=== PATIENT | female | born 1985 | race American Indian/Alaskan Native ===

== ENCOUNTER 2018-06-01 05:30 | Inpatient (IN) | payer SELFPAY ==
[2018-06-01] MEDS ORDERED: ASPIRIN PO ONE (05:45)
[2018-06-01 06:28] LABS: Basophils # (Auto) 0.1 K/mm3 (0.0-0.1); Basophils % (Auto) 0.9 % (0.0-1.8); Eosinophils # (Auto) 0.1 K/mm3 (0.0-0.4); Eosinophils % (Auto) 2.1 % (0.0-4.3); Hematocrit 26.2 % (30.3-42.9); Hemoglobin 8.5 gm/dl (10.1-14.3); Lymphocytes # (Auto) 1.6 K/mm3 (1.2-5.4); Lymphocytes % (Auto) 23.4 % (13.4-35.0); Mean Corpuscular HGB Conc 33 % (30-34); Mean Corpuscular Volume 90 fl (79-97); Monocytes # (Auto) 0.6 K/mm3 (0.0-0.8); Monocytes % (Auto) 8.9 % (0.0-7.3); Platelet Count 348 K/mm3 (140-440); Red Blood Count 2.91 M/mm3 (3.65-5.03); Red Cell Distribution Width 15.3 % (13.2-15.2)
[2018-06-01 06:44] LABS: BUN/Creatinine Ratio 20; Blood Urea Nitrogen 12 mg/dL (7-17); Calcium 8.3 mg/dL (8.4-10.2); Hemolysis Index 2
[2018-06-01 06:59] LABS: INR 0.97 (0.87-1.13); Partial Thromboplastin Time 28.1 Sec. (24.2-36.6)
[2018-06-01 07:08] LABS: Alanine Aminotransferase 13 units/L (7-56); Albumin 3.5 g/dL (3.9-5)
[2018-06-01 07:34] LABS: Bacteria,Urine 1+ /HPF (Negative); Bilirubin,Urine NEG (Negative); Blood,Urine LG (Negative); Color,Urine Yellow (Yellow); Mucus,Urine 2+ /HPF; Urobilinogen,Urine < 2.0 mg/dL (<2.0)
[2018-06-01 07:35] LABS: HCG Qualitative,Urine Negative (Negative)
[2018-06-01 07:37] LABS: Creatine Kinase MB < 1.0 ng/mL (0.0-4.0)
[2018-06-01 07:38] LABS: Bilirubin,Direct < 0.2 mg/dL (0-0.2)
[2018-06-01 07:39] LABS: Amphetamine Screen,Urine PRESUMPTIVE NEGATIVE; Benzodiazepines Screen,Urine PRESUMPTIVE NEGATIVE; Cannabinoid Screen,Urine PRESUMPTIVE NEGATIVE; Cocaine Screen,Urine PRESUMPTIVE NEGATIVE; Methadone Screen,Urine PRESUMPTIVE NEGATIVE; Opiate Screen,Urine PRESUMPTIVE NEGATIVE
--- NOTE | 2018-06-01 07:47 | XRay Report ---
AP CHEST: HISTORY: chest pain AP view of the chest demonstrates a normal mediastinal and cardiac contour with clear lungs and normal bony and soft tissue structures. IMPRESSION: Unremarkable AP chest.
--- NOTE | 2018-06-01 08:31 | Emergency Department Report ---
ED General Adult HPI - General Chief complaint: Dyspnea/Respdistress Stated complaint: TRACY Time Seen by Provider: 06/01/18 06:26 Source: patient Mode of arrival: Ambulatory Limitations: No Limitations - History of Present Illness Initial comments: This is a 32 year old morbidly obese female who states that she woke up in the middle of the night gasping for air. She is here with family member who states that she witnessed this but did not appreciate a period of apnea prior as she was not in the room. Apparently this patient has been suspected of sleep apnea in the past but has never had a sleep study. She also complains of persistent chest tightness. It is nonpleuritic in nature. It is substernal. It does not radiate. It has largely resolved. She has had an occasional nonproductive cough but does not complain of leg pain. Cough is nonproductive. Patient states that she has been to hospitals in [place] as well has out-of-town for evaluation of these type episodes. She has never had a sleep study. She has never had any cardiac workup. She has no history of recent travel. She does complain of bilateral leg swelling which is somewhat chronic. She has no history of venous thromboembolism. -: Last night Location: chest Severity scale (0 -10): 4 Quality: other Consistency: intermittent Improves with: none (tightness), immobilization Associated Symptoms: shortness of breath Treatments Prior to Arrival: none - Related Data Home Medications Medication Instructions Recorded Confirmed Last Taken No Known Home Medications [No 06/01/18 06/01/18 Unknown Reported Home Medications] Allergies Allergy/AdvReac Type Severity Reaction Status Date / Time No Known Allergies Allergy Verified 06/01/18 05:42 ED Review of Systems ROS: Stated complaint: TRACY Other details as noted in HPI Constitutional: denies: chills, fever Eyes: denies: eye pain, eye discharge, vision change ENT: denies: ear pain, throat pain Respiratory: see HPI, cough, shortness of breath. denies: wheezing Cardiovascular: chest pain. denies: palpitations Endocrine: no symptoms reported Gastrointestinal: denies: abdominal pain, nausea, diarrhea Genitourinary: denies: urgency, dysuria, discharge Musculoskeletal: denies: back pain, joint swelling, arthralgia Skin: denies: rash, lesions Neurological: denies: headache, weakness, paresthesias Psychiatric: denies: anxiety, depression Hematological/Lymphatic: denies: easy bleeding, easy bruising ED Past Medical Hx - Past Medical History Previous Medical History?: Yes Additional medical history: palpations. hypomagnesemia. poss Sleep apnea. heart murmur. Hypothyroid - Surgical History Past Surgical History?: No - Social History Smoking Status: Never Smoker Substance Use Type: None - Medications Home Medications: Home Medications Medication Instructions Recorded Confirmed Last Taken Type No Known Home Medications [No 06/01/18 06/01/18 Unknown History Reported Home Medications] ED Physical Exam - General Limitations: No Limitations General appearance: alert, in no apparent distress - Head Head exam: Present: atraumatic, normocephalic - Eye Eye exam: Present: normal appearance. Absent: scleral icterus - ENT ENT exam: Present: mucous membranes moist - Neck Neck exam: Present: normal inspection - Respiratory Respiratory exam: Present: normal lung sounds bilaterally. Absent: respiratory distress - Cardiovascular Cardiovascular Exam: Present: regular rate, normal rhythm. Absent: systolic murmur, diastolic murmur, rubs, gallop - GI/Abdominal GI/Abdominal exam: Present: soft, normal bowel sounds. Absent: distended, tenderness, guarding, rebound, rigid - Extremities Exam Extremities exam: Present: other (bilateral pretibial edema left slightly greater than right). Absent: calf tenderness - Back Exam Back exam: Present: normal inspection. Absent: tenderness, CVA tenderness (L), muscle spasm, paraspinal tenderness - Neurological Exam Neurological exam: Present: alert, oriented X3, CN II-XII intact. Absent: motor sensory deficit - Psychiatric Psychiatric exam: Present: normal affect, normal mood - Skin Skin exam: Present: warm, dry, intact, normal color. Absent: rash ED Course Vital Signs 06/01/18 06/01/18 06/01/18 05:31 05:53 07:17 Temperature 98.1 F 98.2 F 98 F Pulse Rate 117 H 99 H 94 H Respiratory 22 18 16 Rate Blood Pressure 143/85 Blood Pressure 139/71 130/73 [Left] O2 Sat by Pulse 96 99 100 Oximetry - Reevaluation(s) Reevaluation #1: I have ordered further workup of this patient is apparently life-altering episode last night. It does seem most consistent with sleep apnea. It does s eem to be fairly profound in nature however. She is not hypoxic now. I have ordered a blood gas to exclude chronic hypercapnic respiratory failure as she is morbidly obese. I do note a very slightly elevated d-dimer. I have ordered Dopplers of her legs. I will leave further workup as per the hospitalist discretion. Patient is admitted by Dr. Corea in stable condition. Patient has unexplained anemia and probably a UTI as well. 06/01/18 09:07 06/01/18 09:10 ED Medical Decision Making - Lab Data Result diagrams: 06/01/18 06:11 06/01/18 06:11 Laboratory Results - last 24 hr 06/01/18 06/01/18 06/01/18 06:11 06:11 06:33 WBC 7.0 RBC 2.91 L Hgb 8.5 L Hct 26.2 L MCV 90 MCH 29 MCHC 33 RDW 15.3 H Plt Count 348 Lymph % (Auto) 23.4 [place] % (Auto) 8.9 H Eos % (Auto) 2.1 Baso % (Auto) 0.9 Lymph # 1.6 [place] # 0.6 Eos # 0.1 Baso # 0.1 Seg Neutrophils % 64.7 Seg Neutrophils # 4.5 PT 13.5 INR 0.97 APTT 28.1 D-Dimer Sodium 139 Potassium 3.6 Chloride 102.8 Carbon Dioxide 26 Anion Gap 14 BUN 12 Creatinine 0.6 L Estimated GFR > 60 BUN/Creatinine Ratio 20 Glucose 98 Calcium 8.3 L Magnesium Total Bilirubin Direct Bilirubin Indirect Bilirubin AST ALT Alkaline Phosphatase Total Creatine Kinase CK-MB (CK-2) CK-MB (CK-2) Rel Index Troponin T < 0.010 NT-Pro-B Natriuret Pep Total Protein Albumin Albumin/Globulin Ratio HCG, Qual Urine Color Urine Turbidity Urine pH Ur Specific [place] Urine Protein Urine Glucose (UA) Urine Ketones Urine Blood Urine Nitrite Urine Bilirubin Urine Urobilinogen Ur Leukocyte Esterase Urine WBC (Auto) Urine RBC (Auto) U Epithel Cells (Auto) Urine Bacteria (Auto) Urine Mucus Urine HCG, Qual Urine Opiates Screen Urine Methadone Screen Ur Barbiturates Screen Ur Phencyclidine Scrn Ur Amphetamines Screen U Benzodiazepines Scrn Urine Cocaine Screen U Marijuana (THC) Screen Drugs of Abuse Note 06/01/18 06/01/18 06/01/18 06:33 06:33 06:33 WBC RBC Hgb Hct MCV MCH MCHC RDW Plt Count Lymph % (Auto) [place] % (Auto) Eos % (Auto) Baso % (Auto) Lymph # [place] # Eos # Baso # Seg Neutrophils % Seg Neutrophils # PT INR APTT D-Dimer 284.66 H Sodium Potassium Chloride Carbon Dioxide Anion Gap BUN Creatinine Estimated GFR BUN/Creatinine Ratio Glucose Calcium Magnesium 1.80 Total Bilirubin 0.20 Direct Bilirubin < 0.2 Indirect Bilirubin 0.0 AST 15 ALT 13 Alkaline Phosphatase 47 Total Creatine Kinase 88 CK-MB (CK-2) < 1.0 CK-MB (CK-2) Rel Index 1.1 Troponin T < 0.010 NT-Pro-B Natriuret Pep < 5 Total Protein 6.0 L Albumin 3.5 L Albumin/Globulin Ratio 1.4 HCG, Qual Negative Urine Color Urine Turbidity Urine pH Ur Specific [place] Urine Protein Urine Glucose (UA) Urine Ketones Urine Blood Urine Nitrite Urine Bilirubin Urine Urobilinogen Ur Leukocyte Esterase Urine WBC (Auto) Urine RBC (Auto) U Epithel Cells (Auto) Urine Bacteria (Auto) Urine Mucus Urine HCG, Qual Urine Opiates Screen Urine Methadone Screen Ur Barbiturates Screen Ur Phencyclidine Scrn Ur Amphetamines Screen U Benzodiazepines Scrn Urine Cocaine Screen U Marijuana (THC) Screen Drugs of Abuse Note 06/01/18 06/01/18 07:17 07:17 WBC RBC Hgb Hct MCV MCH MCHC RDW Plt Count Lymph % (Auto) [place] % (Auto) Eos % (Auto) Baso % (Auto) Lymph # [place] # Eos # Baso # Seg Neutrophils % Seg Neutrophils # PT INR APTT D-Dimer Sodium Potassium Chloride Carbon Dioxide Anion Gap BUN Creatinine Estimated GFR BUN/Creatinine Ratio Glucose Calcium Magnesium Total Bilirubin Direct Bilirubin Indirect Bilirubin AST ALT Alkaline Phosphatase Total Creatine Kinase CK-MB (CK-2) CK-MB (CK-2) Rel Index Troponin T NT-Pro-B Natriuret Pep Total Protein Albumin Albumin/Globulin Ratio HCG, Qual Urine Color Yellow Urine Turbidity Clear Urine pH 5.0 Ur Specific [place] 1.029 Urine Protein 30 mg/dl Urine Glucose (UA) Neg Urine Ketones Neg Urine Blood Lg Urine Nitrite Neg Urine Bilirubin Neg Urine Urobilinogen < 2.0 Ur Leukocyte Esterase Neg Urine WBC (Auto) 13.0 H Urine RBC (Auto) 159.0 U Epithel Cells (Auto) 1.0 Urine Bacteria (Auto) 1+ Urine Mucus 2+ Urine HCG, Qual Negative Urine Opiates Screen Presumptive negative Urine Methadone Screen Presumptive negative Ur Barbiturates Screen Presumptive negative Ur Phencyclidine Scrn Presumptive negative Ur Amphetamines Screen Presumptive negative U Benzodiazepines Scrn Presumptive negative Urine Cocaine Screen Presumptive negative U Marijuana (THC) Screen Presumptive negative Drugs of Abuse Note Disclamer Laboratory Results - last 24 hr 06/01/18 06/01/18 06/01/18 06:11 06:11 06:33 WBC 7.0 RBC 2.91 L Hgb 8.5 L Hct 26.2 L MCV 90 MCH 29 MCHC 33 RDW 15.3 H Plt Count 348 Lymph % (Auto) 23.4 [place] % (Auto) 8.9 H Eos % (Auto) 2.1 Baso % (Auto) 0.9 Lymph # 1.6 [place] # 0.6 Eos # 0.1 Baso # 0.1 Seg Neutrophils % 64.7 Seg Neutrophils # 4.5 PT 13.5 INR 0.97 APTT 28.1 D-Dimer Sodium 139 Potassium 3.6 Chloride 102.8 Carbon Dioxide 26 Anion Gap 14 BUN 12 Creatinine 0.6 L Estimated GFR > 60 BUN/Creatinine Ratio 20 Glucose 98 Calcium 8.3 L Magnesium Total Bilirubin Direct Bilirubin Indirect Bilirubin AST ALT Alkaline Phosphatase Total Creatine Kinase CK-MB (CK-2) CK-MB (CK-2) Rel Index Troponin T < 0.010 NT-Pro-B Natriuret Pep Total Protein Albumin Albumin/Globulin Ratio HCG, Qual Urine Color Urine Turbidity Urine pH Ur Specific [place] Urine Protein Urine Glucose (UA) Urine Ketones Urine Blood Urine Nitrite Urine Bilirubin Urine Urobilinogen Ur Leukocyte Esterase Urine WBC (Auto) Urine RBC (Auto) U Epithel Cells (Auto) Urine Bacteria (Auto) Urine Mucus Urine HCG, Qual Urine Opiates Screen Urine Methadone Screen Ur Barbiturates Screen Ur Phencyclidine Scrn Ur Amphetamines Screen U Benzodiazepines Scrn Urine Cocaine Screen U Marijuana (THC) Screen Drugs of Abuse Note 06/01/18 06/01/18 06/01/18 06:33 06:33 06:33 WBC RBC Hgb Hct MCV MCH MCHC RDW Plt Count Lymph % (Auto) [place] % (Auto) Eos % (Auto) Baso % (Auto) Lymph # [place] # Eos # Baso # Seg Neutrophils % Seg Neutrophils # PT INR APTT D-Dimer 284.66 H Sodium Potassium Chloride Carbon Dioxide Anion Gap BUN Creatinine Estimated GFR BUN/Creatinine Ratio Glucose Calcium Magnesium 1.80 Total Bilirubin 0.20 Direct Bilirubin < 0.2 Indirect Bilirubin 0.0 AST 15 ALT 13 Alkaline Phosphatase 47 Total Creatine Kinase 88 CK-MB (CK-2) < 1.0 CK-MB (CK-2) Rel Index 1.1 Troponin T < 0.010 NT-Pro-B Natriuret Pep < 5 Total Protein 6.0 L Albumin 3.5 L Albumin/Globulin Ratio 1.4 HCG, Qual Negative Urine Color Urine Turbidity Urine pH Ur Specific [place] Urine Protein Urine Glucose (UA) Urine Ketones Urine Blood Urine Nitrite Urine Bilirubin Urine Urobilinogen Ur Leukocyte Esterase Urine WBC (Auto) Urine RBC (Auto) U Epithel Cells (Auto) Urine Bacteria (Auto) Urine Mucus Urine HCG, Qual Urine Opiates Screen Urine Methadone Screen Ur Barbiturates Screen Ur Phencyclidine Scrn Ur Amphetamines Screen U Benzodiazepines Scrn Urine Cocaine Screen U Marijuana (THC) Screen Drugs of Abuse Note 06/01/18 06/01/18 07:17 07:17 WBC RBC Hgb Hct MCV MCH MCHC RDW Plt Count Lymph % (Auto) [place] % (Auto) Eos % (Auto) Baso % (Auto) Lymph # [place] # Eos # Baso # Seg Neutrophils % Seg Neutrophils # PT INR APTT D-Dimer Sodium Potassium Chloride Carbon Dioxide Anion Gap BUN Creatinine Estimated GFR BUN/Creatinine Ratio Glucose Calcium Magnesium Total Bilirubin Direct Bilirubin Indirect Bilirubin AST ALT Alkaline Phosphatase Total Creatine Kinase CK-MB (CK-2) CK-MB (CK-2) Rel Index Troponin T NT-Pro-B Natriuret Pep Total Protein Albumin Albumin/Globulin Ratio HCG, Qual Urine Color Yellow Urine Turbidity Clear Urine pH 5.0 Ur Specific [place] 1.029 Urine Protein 30 mg/dl Urine Glucose (UA) Neg Urine Ketones Neg Urine Blood Lg Urine Nitrite Neg Urine Bilirubin Neg Urine Urobilinogen < 2.0 Ur Leukocyte Esterase Neg Urine WBC (Auto) 13.0 H Urine RBC (Auto) 159.0 U Epithel Cells (Auto) 1.0 Urine Bacteria (Auto) 1+ Urine Mucus 2+ Urine HCG, Qual Negative Urine Opiates Screen Presumptive negative Urine Methadone Screen Presumptive negative Ur Barbiturates Screen Presumptive negative Ur Phencyclidine Scrn Presumptive negative Ur Amphetamines Screen Presumptive negative U Benzodiazepines Scrn Presumptive negative Urine Cocaine Screen Presumptive negative U Marijuana (THC) Screen Presumptive negative Drugs of Abuse Note Disclamer Critical care attestation.: If time is entered above; I have spent that time in minutes in the direct care of this critically ill patient, excluding procedure time. ED Disposition Clinical Impression: Apneic episode Chest pain Qualifiers: Chest pain type: unspecified Qualified Code(s): R07.9 - Chest pain, unspecified Anemia Qualifiers: Anemia type: unspecified type Qualified Code(s): D64.9 - Anemia, unspecified UTI (urinary tract infection) Qualifiers: Urinary tract infection type: site unspecified Hematuria presence: with hematuria Qualified Code(s): N39.0 - Urinary tract infection, site not specified; R31.9 - Hematuria, unspecified Disposition: 09 OP ADMIT IP TO THIS HOSP Is pt being admited?: Yes Does the pt Need Aspirin: Yes Condition: Stable Instructions: Chest Pain (ED) Referrals: PRIMARY CARE, [Primary Care Provider] - 3-5 Days Time of Disposition: 09:12
--- NOTE | 2018-06-01 11:15 | Vascular Lab Report ---
PROCEDURE: VL VENOUS DUPLEX LE BILAT TECHNIQUE: Duplex Doppler imaging of the veins of the bilateral lower extremities was performed. HISTORY: leg edema COMPARISONS: None FINDINGS: The veins of the right lower extremity are patent, compressible, demonstrate normal waveforms and aug mentation. The veins of the left lower extremity are patent, compressible, and demonstrate normal waveforms and augmentation. IMPRESSION: No evidence of deep venous thrombosis of the bilateral lower extremities. This document is electronically signed by Pearl Murillo MD., June 01 2018 11:12:53 AM ET
--- NOTE | 2018-06-01 13:57 | History and Physical Report ---
History of Present Illness Date of examination: 06/01/18 Chief complaint: sob History of present illness: This is a 32 year old morbidly obese female who states that she woke up in the middle of the night gasping for air. She is here with family member who states that she witnessed this but did not appreciate a period of apnea prior as she was not in the room. Apparently this patient has been suspected of sleep apnea in the past but has never had a sleep study. She also complains of persistent nonradiating substernal chest tightness. She reports that her chest discomfort has resolved. She denies any previous cardiac workup, recent travel. She does complain of bilateral leg swelling which is somewhat chronic. She has no history of venous thromboembolism. Past History Past Medical History: other (obesity) Past Surgical History: No surgical history Social history: no significant social history Family history: no significant family history Medications and Allergies Allergies Allergy/AdvReac Type Severity Reaction Status Date / Time No Known Allergies Allergy Verified 06/01/18 05:42 Home Medications Medication Instructions Recorded Confirmed Last Taken Type No Known Home Medications [No 06/01/18 06/01/18 Unknown History Reported Home Medications] Review of Systems All systems: negative Exam - Constitutional Vitals: Temp Pulse Resp BP Pulse Ox 98.4 F 90 16 158/92 100 06/01/18 11:00 06/01/18 11:00 06/01/18 11:00 06/01/18 11:00 06/01/18 11:00 General appearance: Present: no acute distress, well-nourished - EENT Eyes: Present: PERRL ENT: hearing intact, clear oral mucosa - Neck Neck: Present: supple, normal ROM - Respiratory Respiratory effort: normal Respiratory: bilateral: diminished - Cardiovascular Heart Sounds: Present: S1 & S2. Absent: rub, click - Extremities Extremities: pulses symmetrical, No edema Peripheral Pulses: within normal limits - Abdominal General gastrointestinal: Present: soft, non-tender, non-distended, normal bowel sounds Female genitourinary: Present: normal - Integumentary Integumentary: Present: clear, warm, dry - Musculoskeletal Musculoskeletal: gait normal, strength equal bilaterally - Psychiatric Psychiatric: appropriate mood/affect, intact judgment & insight - Neurologic Neurologic: CNII-XII intact, moves all extremities Results - Labs CBC & Chem 7: 06/01/18 06:11 06/01/18 06:11 Labs: Laboratory Last Values WBC 7.0 K/mm3 (4.5-11.0) 06/01/18 06:11 RBC 2.91 M/mm3 (3.65-5.03) L 06/01/18 06:11 Hgb 8.5 gm/dl (10.1-14.3) L 06/01/18 06:11 Hct 26.2 % (30.3-42.9) L 06/01/18 06:11 MCV 90 fl (79-97) 06/01/18 06:11 MCH 29 pg (28-32) 06/01/18 06:11 MCHC 33 % (30-34) 06/01/18 06:11 RDW 15.3 % (13.2-15.2) H 06/01/18 06:11 Plt Count 348 K/mm3 (140-440) 06/01/18 06:11 Lymph % (Auto) 23.4 % (13.4-35.0) 06/01/18 06:11 [place] % (Auto) 8.9 % (0.0-7.3) H 06/01/18 06:11 Eos % (Auto) 2.1 % (0.0-4.3) 06/01/18 06:11 Baso % (Auto) 0.9 % (0.0-1.8) 06/01/18 06:11 Lymph # 1.6 K/mm3 (1.2-5.4) 06/01/18 06:11 [place] # 0.6 K/mm3 (0.0-0.8) 06/01/18 06:11 Eos # 0.1 K/mm3 (0.0-0.4) 06/01/18 06:11 Baso # 0.1 K/mm3 (0.0-0.1) 06/01/18 06:11 Seg Neutrophils % 64.7 % (40.0-70.0) 06/01/18 06:11 Seg Neutrophils # 4.5 K/mm3 (1.8-7.7) 06/01/18 06:11 PT 13.5 Sec. (12.2-14.9) 06/01/18 06:33 INR 0.97 (0.87-1.13) 06/01/18 06:33 APTT 28.1 Sec. (24.2-36.6) 06/01/18 06:33 D-Dimer 284.66 ng/mlDDU (0-234) H 06/01/18 06:33 Sodium 139 mmol/L (137-145) 06/01/18 06:11 Potassium 3.6 mmol/L (3.6-5.0) 06/01/18 06:11 Chloride 102.8 mmol/L (98-107) 06/01/18 06:11 Carbon Dioxide 26 mmol/L (22-30) 06/01/18 06:11 Anion Gap 14 mmol/L 06/01/18 06:11 BUN 12 mg/dL (7-17) 06/01/18 06:11 Creatinine 0.6 mg/dL (0.7-1.2) L 06/01/18 06:11 Estimated GFR > 60 ml/min 06/01/18 06:11 BUN/Creatinine Ratio 20 % 06/01/18 06:11 Glucose 98 mg/dL (65-100) 06/01/18 06:11 Calcium 8.3 mg/dL (8.4-10.2) L 06/01/18 06:11 Magnesium 1.80 mg/dL (1.7-2.3) 06/01/18 06:33 Total Bilirubin 0.20 mg/dL (0.1-1.2) 06/01/18 06:33 Direct Bilirubin < 0.2 mg/dL (0-0.2) 06/01/18 06:33 Indirect Bilirubin 0.0 mg/dL 06/01/18 06:33 AST 15 units/L (5-40) 06/01/18 06:33 ALT 13 units/L (7-56) 06/01/18 06:33 Alkaline Phosphatase 47 units/L (35-129) 06/01/18 06:33 Total Creatine Kinase 88 units/L (30-135) 06/01/18 06:33 CK-MB (CK-2) < 1.0 ng/mL (0.0-4.0) 06/01/18 06:33 CK-MB (CK-2) Rel Index 1.1 (0-4) 06/01/18 06:33 Troponin T < 0.010 ng/mL (0.00-0.029) 06/01/18 10:12 NT-Pro-B Natriuret Pep < 5 pg/mL (0-450) 06/01/18 06:33 Total Protein 6.0 g/dL (6.3-8.2) L 06/01/18 06:33 Albumin 3.5 g/dL (3.9-5) L 06/01/18 06:33 Albumin/Globulin Ratio 1.4 % 06/01/18 06:33 HCG, Qual Negative (Negative) 06/01/18 06:33 Urine Color Yellow (Yellow) 06/01/18 07:17 Urine Turbidity Clear (Clear) 06/01/18 07:17 Urine pH 5.0 (5.0-7.0) 06/01/18 07:17 Ur Specific [place] 1.029 (1.003-1.030) 06/01/18 07:17 Urine Protein 30 mg/dl mg/dL (Negative) 06/01/18 07:17 Urine Glucose (UA) Neg mg/dL (Negative) 06/01/18 07:17 Urine Ketones Neg mg/dL (Negative) 06/01/18 07:17 Urine Blood Lg (Negative) 06/01/18 07:17 Urine Nitrite Neg (Negative) 06/01/18 07:17 Urine Bilirubin Neg (Negative) 06/01/18 07:17 Urine Urobilinogen < 2.0 mg/dL (<2.0) 06/01/18 07:17 Ur Leukocyte Esterase Neg (Negative) 06/01/18 07:17 Urine WBC (Auto) 13.0 /HPF (0.0-6.0) H 06/01/18 07:17 Urine RBC (Auto) 159.0 /HPF (0.0-6.0) 06/01/18 07:17 U Epithel Cells (Auto) 1.0 /HPF (0-13.0) 06/01/18 07:17 Urine Bacteria (Auto) 1+ /HPF (Negative) 06/01/18 07:17 Urine Mucus 2+ /HPF 06/01/18 07:17 Urine HCG, Qual Negative (Negative) 06/01/18 07:17 Urine Opiates Screen Presumptive negative 06/01/18 07:17 Urine Methadone Screen Presumptive negative 06/01/18 07:17 Ur Barbiturates Screen Presumptive negative 06/01/18 07:17 Ur Phencyclidine Scrn Presumptive negative 06/01/18 07:17 Ur Amphetamines Screen Presumptive negative 06/01/18 07:17 U Benzodiazepines Scrn Presumptive negative 06/01/18 07:17 Urine Cocaine Screen Presumptive negative 06/01/18 07:17 U Marijuana (THC) Screen Presumptive negative 06/01/18 07:17 Drugs of Abuse Note Disclamer 06/01/18 07:17 Assessment and Plan Assessment and plan: Dyspnea. Etiology is unknown but likely related to JESSICA/OHS. Patient will need outpatient sleep study. D-dimer is elevated. Continue O2 for supportive care. BiPAP as clinically indicated. Check ABG. Chest x-ray unremarkable. Consider echocardiogram. Elevated d-dimer. Check CT of the chest. UTI. Start po antibiotics. Check UA and urine culture. OHS/JESSICA. As above.
[2018-06-01] MEDS ORDERED: ZOFRAN IV PRN (14:02)
[2018-06-01] MEDS ORDERED: SODIUM CHLORIDE FLUSH SYRINGE 10 ML IV PRN (14:02)
[2018-06-01] MEDS ORDERED: TYLENOL PO PRN (14:02)
--- NOTE | 2018-06-01 15:27 | Nuclear Medicine Report ---
VENTILATION/PERFUSION LUNG SCAN: 06/01/18 14:28:00 CLINICAL: Dyspnea. TECHNIQUE: 15.0 mCi of xenon-133 was administered by aerosol and 5.0 mCi of technetium 99m MAA was administered intravenously. Comparison is made to a same day chest x-ray. FINDINGS: Inhalation of Xenon gas demonstrates a normal distribution of the activity throughout both lungs. The wash out phases show no significant retention of activity. After injection of Technetium 99m macroaggregated albumin gamma camera imaging of the lungs in multiple projections demonstrates normal pulmonary contours with a relatively homogeneous distribution of activity. No suspicious focal areas of perfusion deficiency are identified. IMPRESSION: Low probability for pulmonary embolus.
[2018-06-01] MEDS ORDERED: LOVENOX SUB-Q SCH (22:00)
[2018-06-01] MEDS: SODIUM CHLORIDE FLUSH SYRINGE 10 ML IV SCH (22:22)
[2018-06-02 07:53] LABS: Basophils % (Auto) 0.9 % (0.0-1.8); Eosinophils # (Auto) 0.1 K/mm3 (0.0-0.4); Eosinophils % (Auto) 2.7 % (0.0-4.3); Hematocrit 26.8 % (30.3-42.9); Hemoglobin 8.5 gm/dl (10.1-14.3); Lymphocytes # (Auto) 1.7 K/mm3 (1.2-5.4); Mean Corpuscular HGB Conc 32 % (30-34); Mean Corpuscular Volume 91 fl (79-97); Monocytes # (Auto) 0.6 K/mm3 (0.0-0.8); Monocytes % (Auto) 11.7 % (0.0-7.3); Platelet Count 351 K/mm3 (140-440); Red Blood Count 2.95 M/mm3 (3.65-5.03); Red Cell Distribution Width 15.7 % (13.2-15.2)
[2018-06-02 08:17] LABS: BUN/Creatinine Ratio 18; Blood Urea Nitrogen 11 mg/dL (7-17); Calcium 8.8 mg/dL (8.4-10.2); Hemolysis Index 5
[2018-06-02] MEDS: SODIUM CHLORIDE FLUSH SYRINGE 10 ML IV SCH (10:44)
[2018-06-02 11:54] VITALS: BP 123/66
--- NOTE | 2018-06-02 14:50 | Discharge Summary ---
Providers - Providers Date of Admission: 06/01/18 14:02 Date of discharge: 06/02/18 Attending physician: REMI JAMES Primary care physician: SIMRAN BUCK MD Hospitalization Condition: Stable Hospital course: Patient is a 32 yo woman without chronic medical issues except BMI 62.3 who presented to [facility] ED with acute SOB during sleep. Dyspnea. Etiology is unknown but likely related to JESSICA/OHS. Patient will need outpatient sleep study. Elevated d-dimer. v/q scan low probability with low pre-test probability==> un likely PE UTI. Start po antibiotics. Check UA and urine culture. OHS/JESSICA suspected. As above. Disposition: DC-01 TO HOME OR SELFCARE Time spent for discharge: 36 minutes Core Measure Documentation - Palliative Care Palliative Care/ Comfort Measures: Not Applicable - Core Measures Any of the following diagnoses?: none - VTE Discharge Requirements Deep Vein Thrombosis/Pulmonary Embolism Present on Admission: No Has pt received <5 days of overlap therapy or INR<2.0: No Anticoagulant overlap therapy prescribed at discharge: No Contraindication No Overlap Therapy order at DC: Not Indicated Exam - Physical Exam Narrative exam: GEN: WDWN, NAD, Awake, Alert, Orientated, bmi 62.3, 180 kg HEENT: NCAT, EOMI, PERRL, OP Clear NECK: supple, no adenopathy, no thyromegaly, no JVD CVS/HEART: RRR, normal S1S2, pulses present bilaterally CHEST/LUNGS: CTA B, Symmetrical chest expansion, good air entry bilaterally GI/Abdomen: soft, NTND, good bowel sounds, no guarding or rebound /Bladder: no suprapubic tenderness, no CVA or paraspinal tenderness EXT/Skin: no c/c/e, no obvious rash MSK: FROM x 4 Neuro: CN 2-12 grossly intact, no new focal deficits Psych: calm - Constitutional Vitals: Temp Pulse Resp BP Pulse Ox 98.6 F 80 22 123/66 98 06/02/18 11:52 06/02/18 11:52 06/02/18 11:52 06/02/18 11:52 06/02/18 11:52 Plan Activity: up only with assistance, other (no strenous activity unless cleared by Lung doctor) Diet: renal Additional Instructions: You need a sleep study which is done at a sleep center. Sleep with head elevated. Follow up with: PRIMARY CARE, [Primary Care Provider] - 3-5 Days JAMIN ERVIN MD [Staff Physician] - 7 Days
== END 2018-06-02 18:10 | disposition home or self-care (01) | DRG 206 ==
LOC: ED 05:30 → 3A 14:02
PROVIDERS: ADMIT Hospitalist; ATTEND Internal Medicine
PROC: 4A033R1 Measurement of Arterial Saturation, Peripheral, Percutaneous Approach (ICD-10-PCS; principal; 2018-06-01)
DX: E66.2 Morbid (severe) obesity with alveolar hypoventilation (principal); N39.0 Urinary tract infection, site not specified; Z68.44 Body mass index [BMI] 60.0-69.9, adult; E03.9 Hypothyroidism, unspecified; D64.9 Anemia, unspecified
CPT/HCPCS: 36415; 71045; 78582; 80048; 80076; 80307; 81001; 81025; 82550; 82553; 82803; 83735; 83880; 84484; 84703; 85025; 85379; 85610; 85730; 87086; 93005; 93010; 93970; G0378; A9540; A9558; J1650

== ENCOUNTER 2018-06-08 00:19 | Emergency (ER) | payer SELFPAY ==
--- NOTE | 2018-06-08 01:11 | Emergency Department Report ---
ED General Adult HPI - General Chief complaint: Extremity Problem,Nontraumatic Stated complaint: LEG AND THIGH SWELLING HEART FLUTTERING Time Seen by Provider: 06/08/18 00:59 Source: patient Mode of arrival: Ambulatory Limitations: No Limitations - History of Present Illness Initial comments: Patient is a 32-year-old -[place] female obese presents for bipolar extremity edema for past 2 weeks. She she states she is in heart failure, she was admitted on through for further evaluation including PE studies DVT studies, heart failure studies, I constipation is ambulatory. There is no respiratory distress at this time, there is no fever no chills there's been no nausea vomiting or diaphoresis back. Onset/Timin -: week(s) Location: chest, lower extremity Severity scale (0 -10): 4 Consistency: constant Improves with: none Worsens with: other (activity ) Associated Symptoms: cough (dry hacky cough ), other (bilat LE swelling ) - Related Data Previous Rx's Medication Instructions Recorded Last Taken Type Ibuprofen 800 mg PO TID PRN #30 tablet 06/08/18 Unknown Rx Sulfamethoxazole/Trimethoprim 1 each PO BID 10 Days #20 tablet 06/08/18 Unknown Rx [Bactrim DS TAB] Allergies Allergy/AdvReac Type Severity Reaction Status Date / Time No Known Allergies Allergy Verified 06/01/18 05:42 ED Review of Systems ROS: Stated complaint: LEG AND THIGH SWELLING HEART FLUTTERING Other details as noted in HPI Constitutional: denies: chills, fever Eyes: denies: eye pain, eye discharge, vision change ENT: denies: ear pain, throat pain Respiratory: denies: cough, shortness of breath, wheezing Cardiovascular: denies: chest pain, palpitations Endocrine: no symptoms reported Gastrointestinal: denies: abdominal pain, nausea, diarrhea Genitourinary: denies: urgency, dysuria, discharge Musculoskeletal: other (bilat le Edema ). denies: back pain, joint swelling, arthralgia Skin: denies: rash, lesions Neurological: denies: headache, weakness, paresthesias Psychiatric: denies: anxiety, depression Hematological/Lymphatic: denies: easy bleeding, easy bruising ED Past Medical Hx - Past Medical History Previous Medical History?: Yes Hx Congestive Heart Failure: No Hx Diabetes: No Additional medical history: palpations. hypomagnesemia. poss Sleep apnea. heart murmur. Hypothyroid - Surgical History Past Surgical History?: No - Social History Smoking Status: Never Smoker Substance Use Type: None - Medications Home Medications: Home Medications Medication Instructions Recorded Confirmed Last Taken Type Ibuprofen 800 mg PO TID PRN #30 tablet 06/08/18 Unknown Rx Sulfamethoxazole/Trimethoprim 1 each PO BID 10 Days #20 tablet 06/08/18 Unknown Rx [Bactrim DS TAB] ED Physical Exam - General Limitations: No Limitations General appearance: alert, in no apparent distress - Head Head exam: Present: atraumatic, normocephalic - Eye Eye exam: Present: normal appearance, PERRL, EOMI Pupils: Present: normal accommodation - ENT ENT exam: Present: normal exam, normal orophraynx, TM's normal bilaterally, normal external ear exam - Neck Neck exam: Present: normal inspection, full ROM - Respiratory Respiratory exam: Present: normal lung sounds bilaterally. Absent: respiratory distress, wheezes, chest wall tenderness - Cardiovascular Cardiovascular Exam: Present: regular rate, normal rhythm. Absent: systolic murmur, diastolic murmur, rubs, gallop - GI/Abdominal GI/Abdominal exam: Present: soft, normal bowel sounds - Rectal Rectal exam: Present: deferred - Extremities Exam Extremities exam: Present: normal inspection, full ROM, normal capillary refill. Absent: tenderness, joint swelling, calf tenderness - Expanded Lower Extremity Exam Left Lower Leg exam: Present: full ROM. Absent: tenderness, swelling, abrasion, laceration, ecchymosis, deformity, crepidus, dislocation, erythema, palpable cord, Betina's sign Ankle exam: Present: normal inspection, full ROM Foot/Toe exam: Present: normal inspection, full ROM Neuro vascular tendon exam: Present: no vascular compromise. Absent: motor deficit, sensory deficit, tendon deficit Gait: Positive: observed and normal Right Lower Leg exam: Present: full ROM. Absent: tenderness, swelling, abrasion, laceration, ecchymosis, deformity, crepidus, dislocation, erythema, palpable cord, Betina's sign Ankle exam: Present: normal inspection, full ROM. Absent: tenderness, swelling Foot/Toe exam: Present: normal inspection, full ROM. Absent: tenderness, swelling Neuro vascular tendon exam: Absent: motor deficit, sensory deficit, tendon deficit Gait: Positive: observed and normal - Back Exam Back exam: Present: normal inspection, full ROM. Absent: tenderness, CVA tenderness (R), CVA tenderness (L), muscle spasm, rash noted - Neurological Exam Neurological exam: Present: alert, oriented X3, CN II-XII intact, normal gait, reflexes normal. Absent: motor sensory deficit - Psychiatric Psychiatric exam: Present: normal affect, normal mood - Skin Skin exam: Present: warm, dry, intact, normal color. Absent: rash ED Course Vital Signs 06/08/18 06/08/18 00:24 00:26 Temperature 98.7 F 98.7 F Pulse Rate 114 H 113 H Respiratory 18 18 Rate Blood Pressure 142/95 142/95 O2 Sat by Pulse 100 100 Oximetry ED Medical Decision Making - Lab Data Result diagrams: 06/08/18 00:38 06/08/18 00:38 Labs 06/08/18 06/08/18 06/08/18 00:38 00:38 00:51 WBC 9.4 RBC 3.02 L Hgb 8.8 L Hct 26.8 L MCV 89 MCH 29 MCHC 33 RDW 15.6 H Plt Count 369 Lymph % (Auto) 21.2 [place] % (Auto) 7.7 H Eos % (Auto) 1.7 Baso % (Auto) 0.6 Lymph # 2.0 [place] # 0.7 Eos # 0.2 Baso # 0.1 Seg Neutrophils % 68.8 Seg Neutrophils # 6.4 PT INR APTT Sodium 141 Potassium 3.7 Chloride 103.7 Carbon Dioxide 26 Anion Gap 15 BUN 13 Creatinine 0.6 L Estimated GFR > 60 BUN/Creatinine Ratio 22 Glucose 97 Calcium 8.9 Total Bilirubin 0.20 AST 14 ALT 12 Alkaline Phosphatase 57 Troponin T NT-Pro-B Natriuret Pep Total Protein 6.7 Albumin 3.8 L Albumin/Globulin Ratio 1.3 Urine Color Yellow Urine Turbidity Clear Urine pH 5.0 Ur Specific [place] 1.035 H Urine Protein 30 mg/dl Urine Glucose (UA) Neg Urine Ketones Neg Urine Blood Lg Urine Nitrite Neg Urine Bilirubin Neg Urine Urobilinogen < 2.0 Ur Leukocyte Esterase Tr Urine WBC (Auto) 14.0 H Urine RBC (Auto) > 182.0 U Epithel Cells (Auto) 2.0 Urine Bacteria (Auto) 1+ Urine Mucus 2+ Urine HCG, Qual Negative 06/08/18 06/08/18 01:09 01:09 WBC RBC Hgb Hct MCV MCH MCHC RDW Plt Count Lymph % (Auto) [place] % (Auto) Eos % (Auto) Baso % (Auto) Lymph # [place] # Eos # Baso # Seg Neutrophils % Seg Neutrophils # PT 13.0 INR 0.93 APTT 26.4 Sodium Potassium Chloride Carbon Dioxide Anion Gap BUN Creatinine Estimated GFR BUN/Creatinine Ratio Glucose Calcium Total Bilirubin AST ALT Alkaline Phosphatase Troponin T < 0.010 NT-Pro-B Natriuret Pep < 5 Total Protein Albumin Albumin/Globulin Ratio Urine Color Urine Turbidity Urine pH Ur Specific [place] Urine Protein Urine Glucose (UA) Urine Ketones Urine Blood Urine Nitrite Urine Bilirubin Urine Urobilinogen Ur Leukocyte Esterase Urine WBC (Auto) Urine RBC (Auto) U Epithel Cells (Auto) Urine Bacteria (Auto) Urine Mucus Urine HCG, Qual - EKG Data EKG shows normal: sinus rhythm, axis, intervals, QRS complexes, ST-T waves Rate: normal - EKG Data When compared to previous EKG there are: no significant change Interpretation: normal EKG (ekg interp by ed attending NSR no ST elevation no ectopy ) - Radiology Data Radiology results: report reviewed, image reviewed Loc: ED Attending Dr: Ordering Physician: SHORTY VELIZ NP Date of Service: 06/08/18 Procedure(s): XR chest routine 2V Accession Number(s): [id number] cc: SHORTY VELIZ NP Fluoro Time In Minutes: PROCEDURE: XR CHEST ROUTINE 2V TECHNIQUE: PA and lateral chest radiographs were obtained. HISTORY: cough COMPARISONS: None. FINDINGS: Heart: Normal. Mediastinum/Vessels: Normal. Lungs/Pleural space: Normal. Bony thorax: No acute osseous abnormality. IMPRESSION: No focal consolidation or effusion. This document is electronically signed by Desi Piña MD., June 08 2018 02:12:14 AM ET Transcribed By: QF Dictated By: DESI PIÑA Electronically Authenticated By: DESI PIÑA Signed Date/Time: 06/08/18213 DD/ 9 TD/TT: 06/08/18199 - Medical Decision Making CXR: no infiltrate no opacities, EKG: NSR no ST elevation, BNP: trop, cmp, cbc, normal , UA: pos leuk, wbc, rbc plan: tx for UTI pt with same 2 weeks ago . will dc to home, with rx for bactrim DS , pt will follow up with pcp in 2-3 days return to emergency if symptoms worsen. Critical care attestation.: If time is entered above; I have spent that time in minutes in the direct care of this critically ill patient, excluding procedure time. ED Disposition Clinical Impression: UTI (urinary tract infection) Qualifiers: Urinary tract infection type: acute cystitis Hematuria presence: without hematuria Qualified Code(s): N30.00 - Acute cystitis without hematuria Disposition: DC-01 TO HOME OR SELFCARE Is pt being admited?: No Does the pt Need Aspirin: No Condition: Stable Instructions: Urinary Tract Infection in Men (ED) Prescriptions: Sulfamethoxazole/Trimethoprim [Bactrim DS TAB] 1 each PO BID 10 Days #20 tablet Ibuprofen 800 mg PO TID PRN #30 tablet PRN Reason: Pain , Severe (7-10) Referrals: AUDRA BARBOUR MD [Primary Care Provider] - 3-5 Days Forms: Work/School Release Form(ED) Time of Disposition: 04:31
[2018-06-08 01:25] LABS: Basophils # (Auto) 0.1 K/mm3 (0.0-0.1); Basophils % (Auto) 0.6 % (0.0-1.8); Eosinophils # (Auto) 0.2 K/mm3 (0.0-0.4); Eosinophils % (Auto) 1.7 % (0.0-4.3); Hematocrit 26.8 % (30.3-42.9); Hemoglobin 8.8 gm/dl (10.1-14.3); Lymphocytes % (Auto) 21.2 % (13.4-35.0); Mean Corpuscular HGB Conc 33 % (30-34); Mean Corpuscular Volume 89 fl (79-97); Monocytes # (Auto) 0.7 K/mm3 (0.0-0.8); Monocytes % (Auto) 7.7 % (0.0-7.3); Platelet Count 369 K/mm3 (140-440); Red Blood Count 3.02 M/mm3 (3.65-5.03); Red Cell Distribution Width 15.6 % (13.2-15.2)
[2018-06-08 01:36] LABS: INR 0.93 (0.87-1.13)
[2018-06-08 01:37] LABS: Partial Thromboplastin Time 26.4 Sec. (24.2-36.6)
[2018-06-08 01:41] LABS: Bacteria,Urine 1+ /HPF (Negative); Bilirubin,Urine NEG (Negative); Blood,Urine LG (Negative); Color,Urine Yellow (Yellow); Mucus,Urine 2+ /HPF; Urobilinogen,Urine < 2.0 mg/dL (<2.0)
[2018-06-08 01:43] LABS: HCG Qualitative,Urine Negative (Negative)
[2018-06-08 01:44] LABS: RBC,Urine > 182.0 /HPF (0.0-6.0)
[2018-06-08 01:46] LABS: Alanine Aminotransferase 12 units/L (7-56); Albumin 3.8 g/dL (3.9-5); BUN/Creatinine Ratio 22; Blood Urea Nitrogen 13 mg/dL (7-17); Calcium 8.9 mg/dL (8.4-10.2); Hemolysis Index 5
--- NOTE | 2018-06-08 02:14 | XRay Report ---
PROCEDURE: XR CHEST ROUTINE 2V TECHNIQUE: PA and lateral chest radiographs were obtained. HISTORY: cough COMPARISONS: None. FINDINGS: Heart: Normal. Mediastinum/Vessels: Normal. Lungs/Pleural space: Normal. Bony thorax: No acute osseous abnormality. IMPRESSION: No focal consolidation or effusion. This document is electronically signed by Kylie Piña MD., June 08 2018 02:12:14 AM ET
[2018-06-08] MEDS ORDERED: ROCEPHIN IM ONE (04:11)
[2018-06-08] MEDS ORDERED: XYLOCAINE 1% MPF 5 mL INFILTRATI ONE (04:11)
[2018-06-08 05:42] VITALS: BP 134/69
== END 2018-06-08 05:05 | disposition home or self-care (01) ==
LOC: ED 00:19
DX: R60.0 Localized edema (principal); N39.0 Urinary tract infection, site not specified; E03.9 Hypothyroidism, unspecified
CPT/HCPCS: 36415; 71046; 80053; 81001; 81025; 83880; 84484; 85025; 85610; 85730; 93005; 93010; 96372; 99284; J0696

== ENCOUNTER 2018-06-09 01:02 | Emergency (ER) | payer SELFPAY ==
[2018-06-09 04:49] LABS: Basophils # (Auto) 0.1 K/mm3 (0.0-0.1); Eosinophils # (Auto) 0.2 K/mm3 (0.0-0.4); Eosinophils % (Auto) 2.2 % (0.0-4.3); Hematocrit 26.2 % (30.3-42.9); Hemoglobin 8.6 gm/dl (10.1-14.3); Lymphocytes # (Auto) 2.1 K/mm3 (1.2-5.4); Lymphocytes % (Auto) 24.8 % (13.4-35.0); Mean Corpuscular HGB Conc 33 % (30-34); Mean Corpuscular Volume 88 fl (79-97); Monocytes # (Auto) 0.6 K/mm3 (0.0-0.8); Monocytes % (Auto) 7.8 % (0.0-7.3); Platelet Count 345 K/mm3 (140-440); Red Blood Count 2.97 M/mm3 (3.65-5.03); Red Cell Distribution Width 16.3 % (13.2-15.2)
[2018-06-09 05:12] LABS: BUN/Creatinine Ratio 22; Blood Urea Nitrogen 13 mg/dL (7-17); Hemolysis Index 3
--- NOTE | 2018-06-09 06:15 | Emergency Department Report ---
ED General Adult HPI - General Chief complaint: Arrhythmia/Palpitations Stated complaint: SWELLING IN BOTH LEGS Time Seen by Provider: 06/09/18 06:12 Source: patient Mode of arrival: Ambulatory Limitations: No Limitations - History of Present Illness Initial comments: Is a 32-year-old female who had previously seen and had admitted. The conclusion is below listed: Assessment and Plan Assessment and plan: Dyspnea. Etiology is unknown but likely related to JESSICA/OHS. Patient will need outpatient sleep study. D-dimer is elevated. Continue O2 for supportive care. BiPAP as clinically indicated. Check ABG. Chest x-ray unremarkable. Consider echocardiogram. Elevated d-dimer. Check CT of the chest. UTI. Start po antibiotics. Check UA and urine culture. OHS/JESSICA. As above. In addition to coming to this emergency Department third time recently, he has been to multiple emergency departments in [place] and with her. She has been repeatedly told that she needs workup for sleep apnea. However she does not follow-up with primary care. She tells me she has to go to the [facility] to get an ID so she can be seen at [place]. She states that she will do this today. She does have episodes of nocturnal dyspnea which were likely related to sleep apnea. She is morbidly obese. She is not here for an acute dyspneic episode today. She also has a history of anemia and anxiety. She states that she wakes up in the night and finds her heart to be racing. She is here she states because her legs are swollen. However, I have seen her before and noted her to have leg edema. She has had a recent Doppler of her legs as well as a lung scan which revealed no evidence of venous thromboembolism. She does not complain of leg pain. Additionally, her workup for CHF is negative. Today the patient produces discharge paperwork from at least 4 different hospitals to me. She tells me that she has been told her thyroid test and magnesium is low. -: month(s), year(s) Radiation: other (no complaint of pain) Consistency: intermittent, now resolved Improves with: none Worsens with: none Associated Symptoms: denies other symptoms - Related Data Previous Rx's Medication Instructions Recorded Last Taken Type Ferrous Gluconate [Fergon 325 MG 325 mg PO TID #30 tablet 06/09/18 Unknown Rx tab] Allergies Allergy/AdvReac Type Severity Reaction Status Date / Time No Known Allergies Allergy Verified 06/01/18 05:42 ED Review of Systems ROS: Stated complaint: SWELLING IN BOTH LEGS Other details as noted in HPI Constitutional: denies: chills, fever Eyes: denies: eye pain, eye discharge, vision change ENT: denies: ear pain, throat pain Respiratory: shortness of breath. denies: cough, wheezing Cardiovascular: edema, other (heart racing). denies: chest pain, palpitations Endocrine: no symptoms reported Gastrointestinal: denies: abdominal pain, nausea, diarrhea Genitourinary: denies: urgency, dysuria, discharge Musculoskeletal: denies: back pain, joint swelling, arthralgia Skin: denies: rash, lesions Neurological: denies: headache, weakness, paresthesias Psychiatric: denies: anxiety, depression Hematological/Lymphatic: denies: easy bleeding, easy bruising ED Past Medical Hx - Past Medical History Hx Congestive Heart Failure: No Hx Diabetes: No Additional medical history: palpations. hypomagnesemia. poss Sleep apnea. heart murmur. Hypothyroid - Social History Smoking Status: Never Smoker - Medications Home Medications: Home Medications Medication Instructions Recorded Confirmed Last Taken Type Ferrous Gluconate [Fergon 325 MG 325 mg PO TID #30 tablet 06/09/18 Unknown Rx tab] ED Physical Exam - General Limitations: Physical Limitation General appearance: alert, in no apparent distress, obese (morbid) - Head Head exam: Present: atraumatic, normocephalic - Eye Eye exam: Present: normal appearance. Absent: scleral icterus - ENT ENT exam: Present: mucous membranes moist - Neck Neck exam: Present: normal inspection. Absent: tenderness, meningismus - Respiratory Respiratory exam: Present: normal lung sounds bilaterally. Absent: respiratory distress - Cardiovascular Cardiovascular Exam: Present: regular rate, normal rhythm. Absent: systolic m urmur, diastolic murmur, rubs, gallop - GI/Abdominal GI/Abdominal exam: Present: soft, normal bowel sounds. Absent: distended, tenderness, guarding, rebound, rigid - Extremities Exam Extremities exam: Present: normal capillary refill, other (trace to 1+ pretibial edema). Absent: tenderness, joint swelling, calf tenderness - Back Exam Back exam: Present: normal inspection - Neurological Exam Neurological exam: Present: alert, oriented X3, CN II-XII intact. Absent: motor sensory deficit - Psychiatric Psychiatric exam: Present: normal affect, normal mood - Skin Skin exam: Present: warm, dry, intact, normal color. Absent: rash ED Course Vital Signs 06/09/18 06/09/18 06/09/18 01:56 03:58 05:27 Temperature 97.8 F 97.8 F Pulse Rate 105 H 113 H Respiratory 18 18 Rate Blood Pressure 121/76 121/76 O2 Sat by Pulse 98 98 100 Oximetry 06/09/18 06/09/18 06/09/18 05:30 05:31 05:45 Temperature Pulse Rate 82 85 Respiratory 20 20 12 Rate Blood Pressure 122/56 117/60 O2 Sat by Pulse 99 100 100 Oximetry 06/09/18 06/09/18 06/09/18 06:01 06:15 06:31 Temperature Pulse Rate 77 81 93 H Respiratory 12 24 17 Rate Blood Pressure 124/66 141/71 130/49 O2 Sat by Pulse 100 100 100 Oximetry 06/09/18 06/09/18 06/09/18 06:45 07:01 07:15 Temperature Pulse Rate 89 86 89 Respiratory 20 19 22 Rate Blood Pressure 123/51 115/47 118/54 O2 Sat by Pulse 100 100 Oximetry 06/09/18 06/09/18 06/09/18 07:30 07:45 08:00 Temperature Pulse Rate 96 H 109 H 85 Respiratory 22 23 20 Rate Blood Pressure 117/60 108/42 112/49 O2 Sat by Pulse 97 93 98 Oximetry - Reevaluation(s) Reevaluation #1: This is a patient with chronic anemia, morbid obesity and likely sleep apnea. She has been noncompliant with guidance to follow-up with primary care for many months if not years. She had a recent hospitalization here that revealed no continued need for hospitalization. She has been treated for a UTI. She is medically noncompliant with follow-up. She has social issues. I will check her magnesium and her thyroid functions. Otherwise I can see no indication for admitting her again this today. I can write her a prescription for empiric iron as she has heavy periods. I can write a prescription for a CPAP machine. What she really needs is a primary care provider. She states that she has a plan to go to [place]. 06/09/18 06:44 ED Medical Decision Making - Lab Data Result diagrams: 06/09/18 04:38 06/09/18 04:38 Laboratory Results - last 24 hr 06/09/18 06/09/18 06/09/18 04:38 04:38 04:38 WBC 8.3 RBC 2.97 L Hgb 8.6 L Hct 26.2 L MCV 88 MCH 29 MCHC 33 RDW 16.3 H Plt Count 345 Lymph % (Auto) 24.8 [place] % (Auto) 7.8 H Eos % (Auto) 2.2 Baso % (Auto) 1.0 Lymph # 2.1 [place] # 0.6 Eos # 0.2 Baso # 0.1 Seg Neutrophils % 64.2 Seg Neutrophils # 5.3 Sodium 140 Potassium 3.8 Chloride 102.8 Carbon Dioxide 26 Anion Gap 15 BUN 13 Creatinine 0.6 L Estimated GFR > 60 BUN/Creatinine Ratio 22 Glucose 99 Calcium 9.0 Troponin T < 0.010 NT-Pro-B Natriuret Pep < 5 Laboratory Results - last 24 hr 06/09/18 06/09/18 06/09/18 04:38 04:38 04:38 WBC 8.3 RBC 2.97 L Hgb 8.6 L Hct 26.2 L MCV 88 MCH 29 MCHC 33 RDW 16.3 H Plt Count 345 Lymph % (Auto) 24.8 [place] % (Auto) 7.8 H Eos % (Auto) 2.2 Baso % (Auto) 1.0 Lymph # 2.1 [place] # 0.6 Eos # 0.2 Baso # 0.1 Seg Neutrophils % 64.2 Seg Neutrophils # 5.3 Sodium 140 Potassium 3.8 Chloride 102.8 Carbon Dioxide 26 Anion Gap 15 BUN 13 Creatinine 0.6 L Estimated GFR > 60 BUN/Creatinine Ratio 22 Glucose 99 Calcium 9.0 Magnesium Troponin T < 0.010 NT-Pro-B Natriuret Pep < 5 TSH Free T4 06/09/18 06/09/18 06:55 06:55 WBC RBC Hgb Hct MCV MCH MCHC RDW Plt Count Lymph % (Auto) [place] % (Auto) Eos % (Auto) Baso % (Auto) Lymph # [place] # Eos # Baso # Seg Neutrophils % Seg Neutrophils # Sodium Potassium Chloride Carbon Dioxide Anion Gap BUN Creatinine Estimated GFR BUN/Creatinine Ratio Glucose Calcium Magnesium 1.80 Troponin T NT-Pro-B Natriuret Pep TSH 5.250 H Free T4 1.14 - EKG Data -: EKG Interpreted by Me EKG shows normal: sinus rhythm, axis, intervals, QRS complexes, ST-T waves Rate: normal - EKG Data Interpretation: other (heart rate 99) - Medical Decision Making The patient has chronic anemia and mildly elevated TSH. Her T4 level is normal. Further evaluation the outpatient setting.i appropriate. Her magnesium is slightly low Critical care attestation.: If time is entered above; I have spent that time in minutes in the direct care of this critically ill patient, excluding procedure time. ED Disposition Clinical Impression: Morbid obesity, Hypomagnesemia, Obstructive sleep apnea Anemia Qualifiers: Anemia type: iron deficiency Iron deficiency anemia type: unspecified iron deficiency Qualified Code(s): D50.9 - Iron deficiency anemia, unspecified Edema Qualifiers: Edema type: localized Qualified Code(s): R60.0 - Localized edema Sleep apnea Qualifiers: Sleep apnea type: unspecified type Qualified Code(s): G47.30 - Sleep apnea, unspecified Hypothyroidism Qualifiers: Hypothyroidism type: unspecified Qualified Code(s): E03.9 - Hypothyroidism, unspecified Disposition: DC-01 TO HOME OR SELFCARE Is pt being admited?: No Does the pt Need Aspirin: No Condition: Stable Instructions: Hypomagnesemia (ED) Additional Instructions: Continue your [id number] magnesium, further evaluation the primary care setting is necessary. You have no indications for admission to the hospital today. It is possible he may need thyroid medicine in the future but not moment. Follow-up is indicated. I will give you a prescription for iron for anemia. Follow-up on this is required as well. He may benefit from a CPAP machine. This determination is made in the primary care setting. I do not think the machines require a prescription. Low-sodium diet and leg elevation for swelling. Support hose will help as well. This condition is not treated with medication. Prescriptions: Ferrous Gluconate [Fergon 325 MG tab] 325 mg PO TID #30 tablet Referrals: NICKI HERNANDEZ MD [Primary Care Provider] - 3-5 Days [facility] [Provider Group] - 2-3 Days Time of Disposition: 08:03
[2018-06-09 07:42] LABS: Free T4 (Free Thyroxine) 1.14 ng/dL (0.76-1.46)
[2018-06-09 08:50] VITALS: BP 108/42
== END 2018-06-09 08:53 | disposition home or self-care (01) ==
LOC: ED 01:02
DX: G47.33 Obstructive sleep apnea (adult) (pediatric) (principal); R60.0 Localized edema; D64.9 Anemia, unspecified; E03.9 Hypothyroidism, unspecified; E83.42 Hypomagnesemia
CPT/HCPCS: 36415; 80048; 83735; 83880; 84439; 84443; 84484; 85025; 93005; 93010